=== PATIENT | female | born 2000 | race Caucasian/White ===

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

== ENCOUNTER 2020-01-16 13:05 | Outpatient (CLI) | payer MEDICAID ==
--- NOTE | 2020-01-17 10:24 | Ultrasound Report ---
Reason: SUPERVISON OF Procedure Date: 01/16/2020 Accession Number: [id number] / [id number] Procedure: US - OB Detailed Eval CPT Code: Final Report FULL RESULT: EXAM: COMPLETE OBSTETRICAL ULTRASOUND EXAM DATE: 01/16/2020 02:23 PM. CLINICAL HISTORY: anatomic survey. COMPARISON: OB F/U OR REPEAT 12/05/2019 1:21 PM. TECHNIQUE: Real-time sonographic evaluation of the fetus performed by the unix system administrator. Multiple hr representative static images were saved for review. Additional transvaginal imaging to more accurately evaluate cervical length/placental position/etc. DATING: Established EGA 19 weeks 1 day with SYLVIA 06/10/2020 based on LMP. EGA 18 weeks 5 day with SYLVIA 06/12/2020 based on prior ultrasound. EGA 18 weeks 5 days with SYLVIA 06/12/2020 based on the current ultrasound. GENERAL EVALUATION [place] . Cardiac activity: 143 bpm. movement: Visualized. Presentation: Cephalic. Placenta: Anterior left lateral position. No evidence for previa. Umbilical cord: 3 vessel cord. Central placental cord origin. Amniotic fluid: 10.6 MVP 3.3 cm. BIOMETRY Bi-Parietal Diameter (BPD): 4.28 cm, 19 weeks 0 days Head Circumference (HC): 15.98 cm, 18 weeks 6 days Abdominal Circumference (AC): 12.77 cm, weeks/days Femur Length (FL): 3.06 cm, 19 weeks 3 days Estimated Weight: 262 g, 30.3 percentile for 19 weeks 1 day. ANATOMY The intracranial structures, profile, face/nose/lips, spine, 4 chamber heart and outflow tracts, stomach, abdominal wall and cord insertion, diaphragm, kidneys, bladder, and extremities were visualized and demonstrate no abnormality. MATERNAL STRUCTURES Uterus: Unremarkable. Cervix: Long and closed. Transabdominal length 4.6 cm. Right ovary/adnexa: Unremarkable. Left ovary/adnexa: Unremarkable. Free fluid: None. IMPRESSION: 1. Weaver live intrauterine with gestational age 19 weeks 1 day based on LMP. 2. Estimated weight is within expected limits for assigned dating. 3. Normal anatomic survey. No anatomic abnormalities are detected at this time. RADIA
== END 2020-01-16 13:06 | disposition home or self-care (01) ==
LOC: DI 13:05
PROVIDERS: ATTEND Nurse Practitioner Obstetrics & Gynecology
DX: Z34.92 Encounter for supervision of normal pregnancy, unspecified, second trimester (principal); Z36.89 Encounter for other specified antenatal screening
CPT/HCPCS: 76811

== ENCOUNTER 2020-01-26 10:50 | Outpatient (CLI) | payer MEDICAID ==
[2020-01-26 14:00] LABS: BILIRUBIN,URINE NEGATIVE (NEGATIVE); GLUCOSE, URINE (UA) NEGATIVE (NEGATIVE); KETONES,URINE (UA) NEGATIVE (NEGATIVE); LEUKOCYTE ESTERASE, URINE NEGATIVE (NEGATIVE); NITRITE,URINE NEGATIVE (NEGATIVE); OCCULT BLOOD,URINE NEGATIVE (NEGATIVE); PH,URINE 5.5 PH (5.0-7.5); PROTEIN,URINE NEGATIVE (NEGATIVE); UROBILINOGEN,URINE 0.2 (NORMAL) E.U./dL (NORMAL)
[2020-01-26 14:39] LABS: CLARITY,URINE CLEAR (CLEAR); RBC,URINE 0-5 /HPF (0-5); SQUAMOUS EPITHELIAL CELL,UR FEW Squamous (<= Few)
[2020-01-26 14:40] LABS: BACTERIA,URINE Few /HPF (None Seen); CRYSTALS,URINE 6-10 Calcium Oxalate /LPF
[2020-01-26 20:25] LABS: CANDIDA GROUP DNA NEGATIVE (NEGATIVE); CANDIDA KRUSEI DNA NEGATIVE (NEGATIVE); TRICHOMONAS VAGINALIS DNA NEGATIVE (NEGATIVE)
== END 2020-01-26 23:59 | disposition home or self-care (01) ==
LOC: LAB.R 10:50
PROVIDERS: ATTEND Advanced Practice Midwife
DX: Z34.90 Encounter for supervision of normal pregnancy, unspecified, unspecified trimester (principal)
CPT/HCPCS: 81001; 87086; 87661; 87801

== ENCOUNTER 2020-03-20 08:00 | Outpatient (CLI) | payer MEDICAID ==
[2020-03-20 18:13] LABS: BASOPHILS % (AUTO) 0.3 %; EOSINOPHILS # (AUTO) 0.1 10^3/uL (0.0-0.7); EOSINOPHILS % (AUTO) 1.1 %; LYMPHOCYTES # (AUTO) 2.2 10^3/uL (1.5-3.5); LYMPHOCYTES % (AUTO) 21.7 %; MEAN CORPUSCULAR HGB CONC 32.2 g/dL (32.0-36.0); MEAN CORPUSCULAR VOLUME 96.3 fL (81.0-99.0); MEAN PLATELET VOLUME 10.7 fL (7.9-10.8); MONOCYTES # (AUTO) 0.8 10^3/uL (0.0-1.0); MONOCYTES % (AUTO) 8.2 %; NEUTROPHILS % (AUTO) 68.2 %; PLT - PLATELET COUNT 243 10^3/uL (130-450); RED BLOOD COUNT 3.23 10^6/uL (4.20-5.40); RED CELL DISTRIBUTION WIDTH 13.3 % (12.0-15.0); WHITE BLOOD COUNT 10.3 x10^3/uL (4.8-10.8)
== END 2020-03-20 23:59 | disposition home or self-care (01) ==
LOC: LAB.WCP 08:00
PROVIDERS: ATTEND Advanced Practice Midwife
DX: Z34.90 Encounter for supervision of normal pregnancy, unspecified, unspecified trimester (principal); Z36.89 Encounter for other specified antenatal screening
CPT/HCPCS: 36415; 82950; 85025; 86850

== ENCOUNTER 2020-05-09 14:41 | Outpatient (CLI) | payer MEDICAID ==
[2020-05-09 15:03] LABS: BILIRUBIN,URINE NEGATIVE (NEGATIVE); GLUCOSE, URINE (UA) NEGATIVE (NEGATIVE); KETONES,URINE (UA) NEGATIVE (NEGATIVE); LEUKOCYTE ESTERASE, URINE TRACE (NEGATIVE); NITRITE,URINE NEGATIVE (NEGATIVE); OCCULT BLOOD,URINE NEGATIVE (NEGATIVE); PROTEIN,URINE NEGATIVE (NEGATIVE); UROBILINOGEN,URINE 0.2 (NORMAL) E.U./dL (NORMAL)
[2020-05-09 15:09] VITALS: BP 116/67
[2020-05-09 15:15] LABS: BACTERIA,URINE Few /HPF (None Seen); CLARITY,URINE CLEAR (CLEAR); RBC,URINE 0-5 /HPF (0-5); SQUAMOUS EPITHELIAL CELL,UR MOD Squamous (<= Few)
--- NOTE | 2020-05-10 12:18 | PROVIDER PROGRESS NOTE ---
Subjective - Prog Note Date Prog Note Date: 05/09/20 Prog Note Time: 15:00 - Subjective Pt reports feeling: Improved Subjective: Patient presented for complaint of contractions 19yo at 35.4wks gestation S: Pt reports onset of cramping and some brownish discharge O: NST CAT I per nursing No ctx present FFN not appropriate for gestational age A: No signs of labor NST reactive P: Send home with labor precautions. Return for regular visit or sooner PRN Objective - Vital Signs/Intake & Output Reviewed Vital Signs: Yes - Lab Results Other Labs: Lab Results x24hrs 05/09/20 Range/Units 14:50 Urine Color YELLOW Urine Clarity CLEAR (CLEAR) Urine pH 7.0 (5.0-7.5) PH Ur Specific [place] 1.020 (1.002-1.030) Urine Protein NEGATIVE (NEGATIVE) mg/dL Urine Glucose (UA) NEGATIVE (NEGATIVE) mg/dL Urine Ketones NEGATIVE (NEGATIVE) mg/dL Urine Occult Blood NEGATIVE (NEGATIVE) Urine Nitrite NEGATIVE (NEGATIVE) Urine Bilirubin NEGATIVE (NEGATIVE) Urine Urobilinogen 0.2 (NORMAL) (NORMAL) E.U./dL Ur Leukocyte Esterase TRACE H (NEGATIVE) Urine RBC 0-5 (0-5) /HPF Urine WBC 0-3 (0-5) /HPF Ur Squamous Epith Cells MOD Squamous H (<= Few) Urine Bacteria Few (None Seen) /HPF Urine Culture Comments NOT INDICATED ABX Reporting Has patient been on IV antibiotics over the past 48 hours?: No
--- NOTE | 2020-05-10 12:22 | PROCEDURE REPORT ---
- HPI Diagnosis/Indication for NST: Other (Contractions) Current EDU 06/10/20 Gestation 35 Weeks and 3 Days 3 Para 1 Vital Signs Temperature 36.8 C 05/09/20 15:08 Heart Rate 90 05/09/20 15:08 Respiratory Rate 16 05/09/20 15:08 Blood Pressure 116/67 05/09/20 15:08 O2 Saturation 100 05/09/20 15:08 Temperature 36.8 C 05/09/20 15:08 Heart Rate 90 05/09/20 15:08 Respiratory Rate 16 05/09/20 15:08 Blood Pressure 116/67 05/09/20 15:08 O2 Saturation 100 05/09/20 15:08 - NST Procedure NST Procedure Start Time 00:50 Stop Time 01:25 - Results and Plan Findings/Impression: Patient presented for complaint of contractions 19yo at 35.4wks gestation S: Pt reports onset of cramping and some brownish discharge O: NST CAT I per nursing No ctx present FFN not appropriate for gestational age A: No signs of labor NST reactive P: Send home with labor precautions. Return for regular visit or sooner PRN
== END 2020-05-09 15:35 | disposition home or self-care (01) ==
LOC: WFO 14:41 → FBP 14:43 → WFO 15:35
PROVIDERS: ATTEND Advanced Practice Midwife
DX: O36.5930 Maternal care for other known or suspected poor fetal growth, third trimester, not applicable or unspecified (principal); O99.89 Other specified diseases and conditions complicating pregnancy, childbirth and the puerperium; O62.9 Abnormality of forces of labor, unspecified; Z3A.35 35 weeks gestation of pregnancy
CPT/HCPCS: 76816; 81001; 87086; 99212

== ENCOUNTER 2020-05-09 21:50 | Outpatient (CLI) | payer MEDICAID ==
--- NOTE | 2020-05-10 10:08 | Ultrasound Report ---
PROCEDURE: OB F/U or Repeat INDICATIONS: GROWTH AND KARINA OUTSIDE/PRIOR DATING DATA: Last menstrual period (LMP): 09/04/2019. LMP-based estimated date of delivery (SYLVIA): 06/10/2020. First dating scan (date and location): 10/25/2019. Estimated date of delivery (SYLVIA) from first dating scan: 06/15/2020. TECHNIQUE: Real-time scanning was performed of the fetus, with image documentation and biometric measurements. Endovaginal scanning: Performed COMPARISON: 01/16/2020, 12/05/2019 and 10/25/2019. FINDINGS: General: A single living intrauterine gestation is present. Presentation: Cephalic Placenta: Placental position is anterior, without previa. Amniotic fluid index: 20.5 cm, normal 5-24 cm. heart rate: 143 beats per minute. Maternal cervical canal: Closed and 3.8 cm cm long; normal length is 2.5 cm or more. biometrics: Biparietal diameter: 33 weeks 2 days Head circumference: 44 weeks 0 days Abdominal circumference: 33 weeks 6 days Femur length: 33 weeks 2 days Estimated gestational age from initial scan: 34 weeks 5 days Composite gestational age from present scan: 33 weeks 4 days Estimated weight and percentile: 2239 g; 18th percentile Measurement variability in biometric dating: +/- 10 days from 12-20 weeks gestation, +/- 2 weeks from 20-30 weeks gestation, +/- 3 weeks at 30 weeks gestation or more. Other: Not applicable. IMPRESSION: 1. Single living intrauterine gestation with ultrasound estimated gestational age of 33 weeks 4 days in the current study with expected station L age of of 34 weeks 5 days based on initial ultrasound. 2. Estimated weight 2239 g which corresponds to the 18th percentile for gestational age. 3. Amniotic fluid index 20.5 cm normal 5-24 cm (84th percentile). Reviewed by: Luh Lee MD, PhD on 05/10/2020 10:07 AM PDT Approved by: Luh Lee MD, PhD on 05/10/2020 10:07 AM PDT Station ID: [id number]
== END 2020-05-09 21:51 | disposition home or self-care (01) ==
LOC: DI 21:50
PROVIDERS: ATTEND Advanced Practice Midwife
DX: Z34.90 Encounter for supervision of normal pregnancy, unspecified, unspecified trimester (principal)
CPT/HCPCS: 76816

== ENCOUNTER 2020-05-18 07:00 | Outpatient (CLI) | payer MEDICAID ==
[2020-05-18 19:35] LABS: TRICHOMONAS VAGINALIS DNA NEGATIVE (NEGATIVE)
== END 2020-05-18 23:59 | disposition home or self-care (01) ==
LOC: LAB.R 07:00
PROVIDERS: ATTEND Nurse Practitioner Obstetrics & Gynecology
DX: Z36.85 Encounter for antenatal screening for Streptococcus B (principal)
CPT/HCPCS: 87491; 87591; 87661; 87797

== ENCOUNTER 2020-05-24 10:10 | Outpatient (CLI) | payer MEDICAID ==
[2020-05-24 10:29] LABS: HGB - HEMOGLOBIN 11.6 g/dL (12.0-16.0); MEAN CORPUSCULAR HGB CONC 33.3 g/dL (32.0-36.0); MEAN CORPUSCULAR VOLUME 95.9 fL (81.0-99.0); MEAN PLATELET VOLUME 9.9 fL (7.9-10.8); RED BLOOD COUNT 3.63 10^6/uL (4.20-5.40); RED CELL DISTRIBUTION WIDTH 15.9 % (12.0-15.0); WHITE BLOOD COUNT 11.4 x10^3/uL (4.8-10.8)
== END 2020-05-24 10:11 | disposition home or self-care (01) ==
LOC: LAB 10:10
PROVIDERS: ATTEND Advanced Practice Midwife
DX: O99.019 Anemia complicating pregnancy, unspecified trimester (principal)
CPT/HCPCS: 36415; 85027

== ENCOUNTER 2020-06-01 13:33 | Outpatient (CLI) | payer MEDICAID ==
--- NOTE | 2020-06-01 16:43 | Ultrasound Report ---
PROCEDURE: OB F/U or Repeat INDICATIONS: GROWTH, KARINA OUTSIDE/PRIOR DATING DATA: Last menstrual period (LMP): 09/04/2019. LMP-based estimated date of delivery (SYLVIA): 06/10/2020. First dating scan (date and location): 10/25/2019. Estimated date of delivery (SYLVIA) from first dating scan: 06/15/2020. TECHNIQUE: Real-time scanning was performed of the fetus, with image documentation and biometric measurements. Endovaginal scanning: Not needed COMPARISON: Prior OB ultrasound studies for this , 10/25/2019, 12/05/2019, 01/16/2020, 0 FINDINGS: General: A single living intrauterine gestation is present. Presentation: Vertex Placenta: Placental position is anterior, without previa. Amniotic fluid index: 21.5 cm, 90 is percentile for gestational age. heart rate: 130 beats per minute. Maternal cervical canal: Closed, somewhat poorly visualized due to vertex presentation. biometrics: Biparietal diameter: 8.9 cm, 36 weeks 1 day Head circumference: 31.9 cm, 36 weeks 0 days Abdominal circumference: 30.2 cm, 33 weeks 1 day Femur length: 6.5 cm, 33 weeks 4 days Estimated gestational age from initial scan: 38 weeks 0 days. Composite gestational age from present scan: 35 weeks 0 days Estimated weight and percentile: 2420 g, 2.4 percentile. Measurement variability in biometric dating: +/- 10 days from 12-20 weeks gestation, +/- 2 weeks from 20-30 weeks gestation, +/- 3 weeks at 30 weeks gestation or more. Other: Biophysical profile yields 8 of 8 possible points. Umbilical artery systolic/diastolic ratio a t the placenta, midpoint and abdominal extent of the umbilical cord is 2.7, 2.3, 3.2 (mildly elevated at 3.2) normal waveform. IMPRESSION: Current estimated weight is at the lower 2.4 percentile percentile, amniotic fluid volume is normal. Umbilical artery systolic/diastolic ratio is slightly elevated at the abdomi nal margin of the umbilical cord but normal elsewhere. Biophysical profile yields 8 of 8 possible poi nts. Reviewed by: Kirk Galeana MD on 06/01/2020 4:42 PM PDT Approved by: Kirk Galeana MD on 06/01/2020 4:42 PM PDT Station ID: [id number]
== END 2020-06-01 13:34 | disposition home or self-care (01) ==
LOC: DI 13:33
PROVIDERS: ATTEND Advanced Practice Midwife
DX: O26.843 Uterine size-date discrepancy, third trimester (principal)
CPT/HCPCS: 76816

== ENCOUNTER 2020-06-01 18:46 | Inpatient (IN) | payer MEDICAID ==
[2020-06-01] MEDS ORDERED: ONDANSETRON 4 MG/2 ML VIAL IVP PRN (20:22)
[2020-06-01] MEDS ORDERED: CARBOPROST TROMETHAMINE 250 MCG/ML AMP IM PRN (20:22)
[2020-06-01] MEDS ORDERED: fentaNYL 100 MCG/2 ML VIAL IVP PRN (20:22)
[2020-06-01] MEDS ORDERED: SODIUM CHLORIDE FLUSH 0.9% 10 ML SYRINGE IVP PRN (20:22)
[2020-06-01] MEDS ORDERED: LIDOCAINE-MPF 1% 30 ML VIAL ID PRN (20:22)
[2020-06-01] MEDS ORDERED: OXYTOCIN 10 UNIT/ML VIAL IM PRN (20:22)
[2020-06-01] MEDS ORDERED: TRANEXAMIC ACID 1,000 MG in SODIUM CHLORIDE 0.9% 100ML 100 ML IV PRN (20:22)
[2020-06-01] MEDS ORDERED: miSOPROStoL 200 MCG TABLET BC PRN (20:22)
[2020-06-01] MEDS ORDERED: METHYLERGONOVINE 0.2 MG/ML VIAL IM PRN (20:22)
[2020-06-01] MEDS ORDERED: diphenhydrAMINE 25 MG CAPSULE PO PRN (20:28)
--- NOTE | 2020-06-01 20:34 | HISTORY & PHYSICAL EXAMINATION ---
Admit History - Visit Reason Visit Reason: Other (Induction at 38.5wks for IUGR (2.4%)) - : 3 Parity: 1 Premature: 0 Ectopic: 0 : 1 Care: positive: Other ([facility]) Risk/History: positive: None Complications This : positive: Other (IUGR) Smoking Status: Current every day smoker (7-10 cigarettes daily) - Mother's Labs Mother's Blood Type: positive: O Mother's RH: positive: Negative GBS: positive: Group B Step Negative Rubella Status: positive: Non-immune - Other Maternal History Other Maternal History: 19yo at 38.5wks gestation who presents to Labor and Delivery for pre- induction cervical ripening indicated due to IUGR at 2.4% per US today. Reports movement Denies ctx/VB/LOF care with [facility] which has been adequate Complications *IUGR *Nicotine dependence *Anemia in Dating Criteria * 6.4wk US c/w LMP for SYLVIA 06/10/2020 OB Hx *G1: 03/05/18 6#14oz son; term *G2: 11.4wk TAB *G3:current Medications * vitamin-daily *Sertaline 75mg daily in AM *Ferrous sulfate- 325mg twice daily Allergies *NKDA Medical History *Nicotine dependence (7-10cigarettes daily0 *Anxiety/Depression- with acts of bodily harm Surgical History *None Family History *Non contributory Social History *Non contributory Labs, Immunizations, and Findings Initial U/S: 10/25/2019 @ 6w4d concordent with LMP SYLVIA (5days) of 06/10/2020, will keep LMP SYLVIA. O NEG: Rhogam-03/22/2020 Rubella non-immune Genetic testing: desired serum integrated screen, ordered, not drawn correctly. Educated to options, pt agreeable to Quad screen. Authorized and pt notified on 01/26/2020. 07/2020 quad not drawn. Past gestational age for testing. Declines further testing. FAS: 01/16/2020 19.1wks. Anterior Placenta. 3VC. KARINA wnl. 143bpm. EFW 30.3%. Growth US: 05/09/2020 Placenta anterior. EFW 18%. KARINA wnl Glucola - 89 TDAP - 03/22/2020 GBS & GC/CT at 36.5- neg/neg HSV: denies self and partner Breast pump Rx- given 01/26/2020 MOD: ; desires epidural; FOB Ayo. BABY girl Jimi. (has 2yo son Leonel, Dayna#14oz) pp contraception: none desired. Pt educated to risks PAP: pap not indicated due to age SVE : 1.5/40%/-2/moderate/posterior Vertex by BSUS EFW by jeannette's approx 6# FHTs as above US findings today: efw 2.4%; KARINA 90% (21.5). BPP 8/8. FHT 130. Cord dopplers: SD ration 2.7(placenta); 3.2(baby), no back flow, normal waveform. measurements in 35w range, AC in 33wk range. Assessment *19yo at 38.5wks gestation who presents to Labor and Delivery for pre-induction cervical ripening indicated due to IUGR at 2.4% per US today. *Zuñiga Score 4- requires cervical ripening * Heart Tones- Category I Plan *Admit to labor and delivery for high risk induction management *Cervical ripening with Misoprostol *Monitoring- Continuous *Comfort measures available- position changes, whirlpool tub, fentanyl, and epidural per maternal preference *Diet/Activity- per maternal preference *Anticipate Meds/Allgy - Home Medications Home Medications: Ambulatory Orders Medication Instructions Recorded Confirmed Sertraline [Zoloft] 75 tab PO DAILY 10/30/16 02/03/19 - Allergies Allergies/Adverse Reactions: Allergies Allergy/AdvReac Type Severity Reaction Status Date / Time No Known Drug Allergies Allergy Verified 01/25/19 17:38 Review of Systems - Constitutional Constitutional: reports: Fatigue - Gastrointestinal Gastrointestinal: reports: Nausea - Neurological Neurological: reports: Headache (frontal) - Hematologic/Lymphatic Hematologic/Lymphatic: reports: Anemia - All Other Systems All Other Systems: reports: Reviewed and negative Physical - Abdominal Exam Vital Signs: BP 122/72 HR 74 Contraction Frequency (min/apart): intermittent to none Uterine Resting Tone: positive: Soft - Monitoring Heart Rate Baseline: 125 Strip Review: positive: Category I (accels 15x15, no decels) - Presentation Presentation: positive: Vertex - Vaginal Exam Membranes: positive: Membranes intact Dilation (in cm): 1.5 Effacement (%): 40 Station: positive: -2 Cervical Position: positive: Posterior Plan for Labor - Plan For Labor I expect patient to be DC'd or transferred within 96 hours.: Yes
[2020-06-01] MEDS ORDERED: LACTATED RINGERS 1,000 ML IV SCH (21:00)
[2020-06-01] MEDS: miSOPROStoL 100 MCG TABLET BC SCH (21:06)
[2020-06-01 21:07] LABS: BASOPHILS % (AUTO) 0.2 %; EOSINOPHILS # (AUTO) 0.1 10^3/uL (0.0-0.7); EOSINOPHILS % (AUTO) 0.7 %; HGB - HEMOGLOBIN 11.7 g/dL (12.0-16.0); LYMPHOCYTES % (AUTO) 18.8 %; MEAN CORPUSCULAR HEMOGLOBIN 32.1 pg (27.0-31.0); MEAN CORPUSCULAR HGB CONC 33.3 g/dL (32.0-36.0); MEAN CORPUSCULAR VOLUME 96.4 fL (81.0-99.0); MEAN PLATELET VOLUME 10.2 fL (7.9-10.8); MONOCYTES # (AUTO) 0.9 10^3/uL (0.0-1.0); MONOCYTES % (AUTO) 8.2 %; NEUTROPHILS # (AUTO) 7.7 10^3/uL (1.5-6.6); NEUTROPHILS % (AUTO) 71.7 %; PLT - PLATELET COUNT 184 10^3/uL (130-450); RED BLOOD COUNT 3.64 10^6/uL (4.20-5.40); RED CELL DISTRIBUTION WIDTH 15.4 % (12.0-15.0); WHITE BLOOD COUNT 10.7 x10^3/uL (4.8-10.8)
[2020-06-01] MEDS: NICOTINE 14 MG PATCH TOP SCH (21:30)
[2020-06-01] MEDS ORDERED: NICOTINE 14 MG PATCH TOP ONE (21:36)
[2020-06-02] MEDS: miSOPROStoL 100 MCG TABLET BC SCH ×4 (01:13→14:16)
--- NOTE | 2020-06-02 05:30 | PROVIDER PROGRESS NOTE ---
Labor Progress Note - Uterine Monitoring Uterine Monitoring Mode: positive: External toco Contraction Frequency (min/apart): 1-3 Contraction Intensity: positive: Moderate to strong Uterine Resting Tone: positive: Soft - Monitoring Monitor Mode: positive: External ultrasound Heart Rate Baseline: 120 Heart Rate Variability: positive: Moderate (6-25 bmp) Accelerations: positive: Present, 15x15 Decelerations: positive: None Strip Review: positive: Category I - Vaginal Exam Dilation (in cm): 6.5 Effacement (%): 80 Station: -1 Cervical Position: Anterior - Labor Progress Note Labor Progress Note/Additional Text: S: Cisco is coping well, unmedicated, and doing a forward lean at the bedside. She is using multiple position changes and focused breathing. She has requested further support for pain management, and agreed to whirlpool tub. She desires an SVE. She is experiencing new onset nausea, which she declines antiemetics for at this time. Rodrigo is sleeping soundly on the couch. O: BP 130/78 Afebrile SVE: 6-7/80/-1/intact with bulging bag Focused and moaning through contractions S/P miso ripening A: 19yo at 38.6wks gestation in active labor, nearing transition FHTs Cat I Utx adequate and effective, physiologic P: Anticipate Continuous monitoring May utilize whirlpool tub for labor relief- aware of all options for pain relief available May ambulate/hydrate/nourish to preference
[2020-06-02] MEDS ORDERED: fentaNYL 100 MCG/2 ML VIAL ONE (06:32)
[2020-06-02] MEDS ORDERED: ROPIVACAINE 0.2% PF 20ML VIAL ONE (06:32)
[2020-06-02] MEDS ORDERED: ROPIVACAINE 0.2% 0 MG/0 ML BAG EP ONE (06:33)
[2020-06-02] MEDS: OXYTOCIN/SODIUM CHLORIDE 500 ML IV PRN ×3 (06:50→11:27)
[2020-06-02] MEDS: SODIUM CHLORIDE FLUSH 0.9% 10 ML SYRINGE IVP SCH ×3 (07:14→13:25)
[2020-06-02] MEDS ORDERED: WITCH HAZEL/GLYCERIN 1 PAD TOP PRN (07:25)
[2020-06-02] MEDS ORDERED: DOCUSATE SODIUM 100 MG CAPSULE PO PRN (07:25)
[2020-06-02] MEDS ORDERED: HYDROCORTISONE 1% CREAM 28 GM TUBE PR PRN (07:25)
--- NOTE | 2020-06-02 07:31 | DELIVERY NOTE ---
Delivery Note - Labor Labor: positive: Spontaneous, Other (Induced with misoprostol) - Delivery Method Delivery Method: positive: Spontaneous vaginal delivery - Presentation Presentation: positive: Vertex, OA - occiput anterior - Nuchal Cord Nuchal Cord: positive: None - Amniotic Fluid Description Amniotic Fluid Description: positive: Clear - Laceration Laceration: positive: 1st degree, Periurethral (not requiring repair) - Delivery Outcome Delivery Outcome: positive: Livebirth - : positive: Placed in direct skin contact with mother, Stimulated, [place] used [place] sex: positive: Female : 9 : 9 - Cord Cord: positive: 3 vessels - Placenta Placenta: positive: Intact, Spontaneous - Estimated Blood Loss Estimated Blood Loss (in cc): 200 - Post Delivery Events Post Delivery Events: positive: No post delivery events - Delivery Comments (Free Text/Narrative) Delivery Comments (Free Text/Narrative): Note: Labor: This 19 year old, , @38.5wks gestation presented 1999 for induction of labor for IUGR. Cervix was 1.5/40/-2 and vertex by BSUS. FHR pattern demonstrated 125 baseline in a Category I pattern. Normal labor course. Epidural requested, however it became the time to push, and she declined further intervention. She progressed to c/c/+1 with spontaneous pushing efforts at 0637. SROM occurred @ 0638 and amount and color of fluid were noted to be moderate and clear. : Normal of a 2745gm female infant on 06/02/20 @ 0640. Nuchal not pres ent. The was placed on maternal abdomen, stimulated, dried and placed skin to skin. Apgars 9 at one minute and 9 at five minutes. The umbilical cord was allowed to stop pulsating at which time it was doubly clamped by CNM and cut by the patient. Pitocin administered via IV for hemostasis. Fundal massage and gentle cord traction applied for active third stage management. Cord blood was not obtained, baby will need to be drawn to determine rhogam administration requirements. Placenta delivered spontaneously and intact at 0650. Three vessel cord. EBL 200mL. Fourth Stage: Uterine fundus firm and without excessive bleeding. The perineum, vagina, and cervix were inspected and found to have sustained small bilateral first degree periurethral tears that did not require repair. initiated. Family bonding well. Both mother and baby are in stable condition.
[2020-06-02] MEDS: SERTRALINE 50 MG TABLET PO SCH (08:12)
[2020-06-02] MEDS: ACETAMINOPHEN 325 MG TABLET PO SCH ×5 (08:12→23:45)
[2020-06-02] MEDS: IBUPROFEN 600 MG TABLET PO SCH ×3 (08:17→21:38)
[2020-06-02] MEDS: NICOTINE 14 MG PATCH TOP SCH (21:39)
[2020-06-03] MEDS: IBUPROFEN 600 MG TABLET PO SCH ×2 (06:45→12:59)
--- NOTE | 2020-06-03 09:51 | Discharge Plan ---
Discharge Plan Problem Reviewed?: Yes Disposition: 01 Home, Self Care Condition: Good Diet: Regular Activity Restrictions: Additional Comments (Nothing in the vagina for 6 weeks: No intercourse, tampons, douching Call for: -Fever greater than 100.5 - Pain that does not improve with pain medication -Heavy bleeding in which you are soaking a pad an hour for 2 hours in a row) Shower Restrictions: Yes (No tub baths for 4 weeks) Plan of Treatment: Ibuprofen 600 mg by mouth every 6 hours as needed for pain Acetaminophen 500-1000 mg by mouth every 8 hours as needed for pain Docusate 100-200 mg by mouth twice a day as needed for constipation No Smoking: If you smoke, Please STOP! Call for help.
[2020-06-03] MEDS ORDERED: MEASLES,MUMPS & RUBELLA VACC 0.5 ML VIAL SUBQ ONE (09:53)
--- NOTE | 2020-06-03 09:53 | PROVIDER PROGRESS NOTE ---
Subjective - Prog Note Date Prog Note Date: 06/03/20 Prog Note Time: 09:51 - Subjective Subjective: Patient is up and ambulating, tolerating po, and voiding. Pain is well managed with pain medications. Breast-feeding going well Objective - Vital Signs/Intake & Output Reviewed Vital Signs: Yes Vital Signs: Vital Signs x48h Temp Pulse Resp BP Pulse Ox 06/03/20 07:45 98.6 F 72 18 110/31 L 99 Intake & Output: Intake & Output 05/31/20 06/01/20 06/02/20 06/03/20 23:59 23:59 23:59 23:59 Intake Total 2000 Output Total 600 Balance 1400 - Objective General Appearance: positive: No acute distress Respiratory: positive: No respiratory distress Cardiovascular: positive: Other (RR) Abdomen: positive: Non-tender, Other (FF below umbi) Back: positive: Nml inspection Skin: positive: Color nml, No rash Extremities: positive: Non-tender Neurologic/Psychiatric: positive: Oriented x3 - Lab Results Fish Bones: 06/01/20 20:29 Assessment/Plan - Problem List (1) Vaginal delivery Impression: Meeting goals for discharge Routine discharge instructions given DC to home
[2020-06-03] MEDS: ACETAMINOPHEN 325 MG TABLET PO SCH (11:20)
[2020-06-03] MEDS: SERTRALINE 50 MG TABLET PO SCH (11:21)
[2020-06-03 14:46] LABS: MUDS CUTOFF CONCENTRATIONS CUTOFF CONC BELOW:
[2020-06-03 15:11] LABS: AMPHETAMINE SCREEN,URINE NEGATIVE (NEGATIVE); BENZODIAZEPINES SCREEN, URINE NEGATIVE (NEGATIVE); COCAINE SCREEN URINE NEGATIVE (NEGATIVE); METHADONE SCREEN, URINE NEGATIVE (NEGATIVE); METHAMPHETAMINES SCREEN, URINE NEGATIVE (NEGATIVE); OPIATE SCREEN, URINE NEGATIVE (NEGATIVE); OXYCODONE SCREEN, URINE NEGATIVE (NEGATIVE); PROPOXYPHENE SCREEN, URINE NEGATIVE (NEGATIVE); TRICYCLIC ANTIDEPRESSANT,URINE NEGATIVE (NEGATIVE)
[2020-06-03 16:20] VITALS: BP 121/68
--- NOTE | 2020-06-03 16:49 | Labor Flowsheet ---
Labor Flowsheet Datetime Report Generated by CPN: 06/03/2020 16:48 Datetime: 06/03/2020 11:09 VITAL SIGNS NBP Sys/Mary/Mean (mmHg): 105 : 54 : 65 Pulse: 71 Datetime: 06/03/2020 07:30 SpO2 (%): 100 Datetime: 06/02/2020 08:15 Stage of : Recovery Datetime: 06/02/2020 07:16 LaborFlag: Labor Datetime: 06/02/2020 06:50 Stage 2 Comments: placenta delivered, intact, routine discard Datetime: 06/02/2020 06:45 Temperature (C): 36.4 Datetime: 06/02/2020 06:38 Membranes Rupture Method: Spontaneous Amniotic Fluid Color: Clear Amniotic Fluid Amount: Large STAGE 2 Pushing: Coached on Pushing; Urge to Push Pushing Position: Pushing with Contractions; Pushing Lithotomy Pushing Progress: Descent with Pushing; with Pushing; Pushing Effectively with Contraction s Datetime: 06/02/2020 06:37 VAGINAL EXAM Dilatation (cm): 10.0 Datetime: 06/02/2020 06:31 Exam by: Andrew Datetime: 06/02/2020 06:30 UTERINE ACTIVITY Monitor Mode: External Frequency (min): 1.5-2 Quality: Moderate Duration (sec): 40-60 Pattern: Normal: <= 5 Contractions in 10 Minutes Resting Tone (Palpate): Relaxed ASSESSMENT A Monitor Mode: Telemetry FHR Baseline Rate : 125 Variability: Moderate 6-25 bpm Accelerations: 15X15 Decelerations: None (Annotations: Questionable variables vs maternal writhing in bed d/t pt being i n intense pain ) Comments: Pt writhing in bed, unable to decide what to do but needing to have a BM and wanting an e pidural and wanting to push all at the same time Datetime: 06/02/2020 06:04 Monitor Interventions for FHR: Ultrasound Adjusted Datetime: 06/02/2020 06:00 Category: Category I PATIENT CARE Oxygen Method: Room Air Datetime: 06/02/2020 05:53 COMMUNICATION Communication: Call/Page Placed to Provider Provider Notified (Name): Pereyra Communication Comments: Pt requesting epidural Datetime: 06/02/2020 05:52 Pain Coping: Requesting Pain Medication or Epidural Vaginal Exam Comments: still has cervix encourages epidural Datetime: 06/02/2020 05:49 Patient Care Comments: out of jacuzzi. monitors off to put dry belly band on to get back in bed for VE by CNM Datetime: 06/02/2020 05:35 PAIN Pain Scale: 6 Pain Presence: Intermittent Pain Type: Contraction Pain Location: Abdomen Comfort Measures: Hot Shower/Tub/Spa Datetime: 06/02/2020 05:30 Contraction Comments: Difficult to determine d/t maternal positioning and movement Datetime: 06/02/2020 05:11 Pain Assessment Comments: Decided to get back in jacuzzi vs IV pain meds Datetime: 06/02/2020 04:58 I/O Interventions: Up to BR Datetime: 06/02/2020 04:57 Monitor Interventions for UA: [place] Adjusted Datetime: 06/02/2020 04:24 Patient Position/Activity: Birthing Ball Datetime: 06/02/2020 04:16 Effacement (%): 75 Station: -2 Vaginal Bleeding: None Cervix, Consistency: Soft Cervix, Position: Midposition Datetime: 06/02/2020 04:10 Pain Relief Measures: Comfort Measures Datetime: 06/02/2020 01:14 MEDICATIONS Cervical Ripening Agents: Cytotec @ Datetime: 06/02/2020 01:07 Respirations: 16
== END 2020-06-03 16:00 | disposition home or self-care (01) | DRG 807 ==
LOC: WFO 18:46 → FBP 18:49 → WFO 20:22
PROVIDERS: ADMIT Advanced Practice Midwife; ATTEND Advanced Practice Midwife
PROC: 3E0P7VZ Introduction of Hormone into Female Reproductive, Via Natural or Artificial Opening (ICD-10-PCS; principal; 2020-06-01)
PROC: 10E0XZZ Delivery of Products of Conception, External Approach (ICD-10-PCS; 2020-06-02)
DX: O36.5930 Maternal care for other known or suspected poor fetal growth, third trimester, not applicable or unspecified (principal); Z37.0 Single live birth; O71.82 Other specified trauma to perineum and vulva; Z3A.38 38 weeks gestation of pregnancy; O26.893 Other specified pregnancy related conditions, third trimester; Z67.41 Type O blood, Rh negative; O99.334 Smoking (tobacco) complicating childbirth; F17.210 Nicotine dependence, cigarettes, uncomplicated; O99.02 Anemia complicating childbirth
CPT/HCPCS: 76816; 80306; 85025; A9270; J7120

== ENCOUNTER 2021-03-22 13:40 | Outpatient (CLI) | payer MEDICAID | END 2021-03-22 13:41 | disposition home or self-care (01) | LOC: LAB.N 13:40 | PROVIDERS: ATTEND Obstetrics & Gynecology | DX: Z32.01 Encounter for pregnancy test, result positive (principal); Z97.5 Presence of (intrauterine) contraceptive device | CPT/HCPCS: 36415; 84702 ==